=== PATIENT | male | born 1950 | race Two or more races ===

== ENCOUNTER 2017-02-20 13:00 | Emergency (ER) | payer MEDICARE, MEDICAID ==
[~2017-02-20] VITALS: Ht 175.3 cm; Wt 106.0 kg
[2017-02-20 13:07] VITALS: BP 128/80
[2017-02-20] MEDS ORDERED: ASPI-496 PO (13:31)
[2017-02-20] MEDS ORDERED: FURO-92 PO (13:33)
[2017-02-20] MEDS ORDERED: POTA20TA6 PO (13:34)
[2017-02-20] MEDS ORDERED: CARV6.2512 PO (13:34)
[2017-02-20] MEDS ORDERED: HYDROcodone/APAP 5/325 TABLET ONE (13:42)
[2017-02-20 13:58] LABS: HEMATOCRIT 39.9 % (39.2-51.8); HEMOGLOBIN 13.6 g/dL (13.7-18.0); WHITE BLOOD COUNT 5.9 x10^3/uL (3.4-10)
[2017-02-20] MEDS ORDERED: HYDROcodone/APAP 5/325 TABLET PO ONE (14:00)
[2017-02-20 14:11] LABS: ASPARTATE AMINO TRANSFERASE 15 U/L (15-37); BLOOD UREA NITROGEN 18 mg/dL (7-18)
== END 2017-02-20 15:28 | disposition home or self-care (01) ==
LOC: ED 14:16
DX: M54.5 Low back pain (principal); I10 Essential (primary) hypertension; I25.810 Atherosclerosis of coronary artery bypass graft(s) without angina pectoris; E78.5 Hyperlipidemia, unspecified
CPT/HCPCS: 36415; 80053; 81001; 85025; 85610; 85730; 87086; 99284

== ENCOUNTER 2017-11-25 13:18 | Emergency (ER) | payer MEDICARE, MEDICAID ==
[~2017-11-25] VITALS: Ht 175.3 cm; Wt 108.3 kg
[~2017-11-25 13:18] MED LIST: ASPI-496 PO; CARV6.2512 PO; FURO-92 PO; POTA20TA6 PO
[2017-11-25 13:22] VITALS: BP 125/76
== END 2017-11-25 13:42 | disposition home or self-care (01) ==
LOC: ED 13:36
DX: K02.9 Dental caries, unspecified (principal); I25.10 Atherosclerotic heart disease of native coronary artery without angina pectoris; Z95.1 Presence of aortocoronary bypass graft
CPT/HCPCS: 99283